=== PATIENT | female | born 1975 | race African-American/Black ===

== ENCOUNTER 2019-11-02 09:18 | Emergency (ER) | payer OTHER ==
[2014-08-06 16:00] VITALS: BP 135/65
[~2019-11-02 09:18] MED LIST: ALBU2.5V8 INH; AMIO200T4 PO; DABI150C PO; DISO150C3 PO; DIVA250T4 PO; ENOX40DI SQ; HYDR-3164 PO; LISI-334 PO; LORA1TAB PO; METO-247 PO; SIMV20TA18 PO; WARF4TAB68 PO
== END 2019-11-02 10:32 | disposition left against medical advice (07) ==
LOC: ER 09:18
DX: M25.561 Pain in right knee (principal); Z53.21 Procedure and treatment not carried out due to patient leaving prior to being seen by health care provider

== ENCOUNTER → 2021-02-25 | Outpatient (CLI) | payer BC, OTHER ==
[2014-08-06 16:00] VITALS: BP 135/65
[~2021-02-25] MED LIST changes: -AMIO200T4 PO; +AMIO200T53 PO; -LISI-334 PO; +LISI20TA18 PO
--- NOTE | 2021-02-25 14:58 | NUR ---
Patient tolerated MRI well. VS stable throughout. Pacemaker rep on site, RN present throughout imaging. 134/90, 84, 12, 95% on RA 137/91, 84, 14, 96% on RA 134/81, 84, 17, 94% on RA Patient's PPM returned to previous settings post MRI, tolerated well.
--- NOTE | 2021-02-25 17:09 | RAD ---
MR LUMBAR SPINE WO [id number] Date: 02/25/2021 1:39 PM Indication: CHRONIC LOW BACK PAIN, SPASMS WITH RIGHT LOWER EXT NUMBNESS Comparison: None. Technique: Multi-planar multi-weighted magnetic resonance imaging of the lumbar spine was performed w ithout intravenous contrast using the standard lumbar spine protocol. FINDINGS: Straightening of the lumbar lordosis. No acute fracture. Moderate multilevel degenerative disc desicc ation and disc height loss. Endplate edema at L2-3 on the right, likely degenerative. The conus terminates at a normal level. No abnormal signal is seen within the visualized distal spina l cord. No clumping of intrathecal nerve roots. No soft tissue abnormality in the visualized abdomen or pelvis. T12-L1: No disc bulge. No facet arthropathy. No significant spinal stenosis or neural foraminal narro wing. L1-L2: No disc bulge. No facet arthropathy. No significant spinal stenosis or neural foraminal narrow ing. L2-L3: Disc bulge with right far lateral protrusion which abuts the exiting right L2 nerve root. No f acet arthropathy. No significant spinal stenosis or neural foraminal narrowing. L3-L4: Disc bulge. No facet arthropathy. No significant spinal stenosis. Mild left neural foraminal n arrowing. L4-L5: Disc bulge. Mild facet arthropathy. No spinal stenosis. Mild lateral recess narrowing. Moderat e bilateral neural foraminal narrowing. L5-S1: Disc bulge. Mild facet arthropathy. No significant spinal stenosis or neural foraminal narrowi ng. IMPRESSION: Mild to moderate lumbar spondylosis, detailed level by level above. Electronically signed by: Alonso Concepcion MD (02/25/2021 5:06 PM) [id number]
== END ==
LOC: MRI 13:06
PROVIDERS: ATTEND Physical Medicine & Rehabilitation
DX: M47.27 Other spondylosis with radiculopathy, lumbosacral region (principal); M51.17 Intervertebral disc disorders with radiculopathy, lumbosacral region; M48.061 Spinal stenosis, lumbar region without neurogenic claudication; M40.46 Postural lordosis, lumbar region
CPT/HCPCS: 72148

== ENCOUNTER → 2021-03-16 | Outpatient (CLI) | payer BC ==
[2014-08-06 16:00] VITALS: BP 135/65
[~2021-03-16] MED LIST changes: +APIX5TAB PO; +CARV25TA2 PO; +HYDR-2765 PO; +IBUP-1060 PO; +SPIR25TA5 PO
--- NOTE | 2021-03-16 13:13 | PDOC1 ---
INITIAL PAIN CONSULT DATE OF SERVICE: DOS: DATE: 03/16/21 TIME: 13:07 CHIEF COMPLAINT: Chief Complaint: Low back and right lower extremity pain HISTORY OF PRESENT ILLNESS: 45-year-old female presents history of pain low back with right lower extremity for 6 months after she "stepped down wrong" onto her right leg jarring her back causing significant pain in the low back and right lower extremity mostly the p osterior gluteus posterior lateral thigh lateral anterior thigh anteromedial thigh medial lower leg and into the posterior calf as well worse with walking standing changing positions patient reports it wakes her for least 3 times a night from sleep it does affect her bowel bladder control without any incontinence just increased frequency patient reports it does affect her ability to walk she is using a cane which she has it with her today patient has had chiropractic treatment as well as doing exercise stretching strengthening on her own has had a sacroiliac joint injection from her primary physician as well as trigger point injections in the muscles in the back which were helpful but only very temporarily. Patient reports she keeps doing the stretching and is using heat on the back which seems to help as well. Patient reports the pain is primarily in the evening or later in the day but present all day changes during the day with activity worse with walking standing changing positions as a burning sensation in the low back and in the right leg is intermittently numb in the posterior and lateral aspect of the thigh as well as throbbing in the right ankle patient reports he is taking ibuprofen which does decrease the pain but only slightly as does hydrocodone which decreases by about 30 to 40%. Patient of MRI scan lumbar spine showing disc bulge at L4-5 with mild lateral recess narrowing moderate bilateral neuroforaminal narrowing as well. Patient rates her disability rating 0-10 10 me the worst is a 10 with family responsibilities recreation social activity occupation and self-care 9 with sexual behavior and 5 life support activities. 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 PREVIOUS SURGERIES: Past Surgical Hx: Aortic valve replacement 2014 and then replaced with pig valve 2017, Dayday filter placement CURRENT MEDICATIONS: Current Meds: Active Scripts Medications Dose Route/Sig Max Daily Dose Days Date Category Ibuprofen 800 Mg Tablet 800 Mg PO PRN Q6HRS PRN 03/16/21 Reported Spironolactone 25 Mg Tablet 25 Mg PO BID 03/16/21 Reported Carvedilol 25 Mg Tablet 25 Mg PO BIDWMEALS 03/16/21 Reported Eliquis (Apixaban) 5 Mg Tablet 5 Mg PO BID 03/16/21 Reported Hydrocodone-Apap 7.5-325 (Hydrocodone Bit/Acetaminophen) 1 Tab Tablet 1 Tab PO PRN Q6HRS PRN 03/16/21 Reported ALLERGIES; Allergies: Coded Allergies: No Known Drug Allergies (Unverified , 08/06/14) FAMILY HISTORY: Family Hx: No major medical conditions that she is aware of SOCIAL HISTORY: Social Hx: Patient is under alcohol does not smoke says any illegal illicit recreational drugs lives locally in [facility] REVIEW OF SYSTEMS: ROS: Positive for those items mentioned in history of present illness, all systems are reviewed, otherwise negative ,and are complete full and well-documented on patient's chart. PHYSICAL EXAM: VS: Blood pressures 127/71 pulse 88 respiration 16 temperature 98.8 with Fahrenheit height is 5 feet 10 inches weight is 214 pounds. PE: PHYSICAL EXAMINATION: GENERAL: The patient is awake, alert, oriented, appropriate, very pleasant demeanor HEENT: Shows normocephalic, atraumatic. Extraocular movements are intact and symmetrical. Oral cavity: Mucous membranes moist and pink. Dentition is intact. NECK: Shows anterior throat supple without palpable lymphadenopathy noted. Swallow reflex symmetrical. CHEST: Shows normal on inspection. Breath sounds are clear bilaterally, distant but no rales or rhonchi. HEART: Shows S1, S2 clear. No murmurs auscultated. ABDOMEN: Soft, nontender, nondistended, obese. No palpable organomegaly is noted. BACK: Shows spine grossly in the midline. Normal-appearing cervical lordotic curvature. There is slightly increased thoracic kyphosis, some minor flattening of the lumbar lordotic curvature. Lumbar paraspinous muscles show symmetrical on inspection, on palpation shows some moderate tenderness diffusely throughout the upper, middle and lower distribution of the paraspinous muscles bilaterally and also into the lower thoracic paraspinous musculature, firm and tender, but without specific trigger points, without radiation of pain. The patient has good rotational motion of the lumbar spine, both laterally as well as extension and flexion without significant difficulty. No tenderness over the spinous processes, sacrum or sacroiliac regions. EXTREMITIES: Lower extremities show deep tendon reflexes 2+ in the patellar and tendo calcaneus tendons. Motor exam is 4 on a scale of 5 with right dorsiflexion, extension, quadriceps and hamstring flexion and 5/5 on the left. Peripheral pulses are 1+ posterior tibial. No peripheral edema is noted bilaterally. Lower extremities are warm and dry to touch, equal in color and appearance. Straight leg raise noted to be Ector on the right about 4 degrees, left side is negative. Gaenslen's and Kris's maneuvers are negative bilaterally. The patient is able to stand, stand on her toes without significant difficulty walks with a slight favoring gait does appear to favor the right lower extremity slightly, and does have a cane with her today to ambulate. SKIN: Shows warm and dry, good turgor. No edema. No sores, rashes or bruising throughout. IMPRESSION: Impression: 45-year-old female with approximate 6-month history of pain low back right lower extremity in a radicular fashion following L4-5 dermatomal distribution. MRI scan lumbar spine as noted Hypertension Factor V deficiency Cardiomyopathy status post aortic valve replacement with anticoagulation therapy Plan: Options discussed with the patient including continued physical therapies conservative medical management and interventional techniques. Patient would like to pursue interventional techniques. We discussed a lumbar epidural steroid injection using descriptions as well as anatomical models described procedure. Patient will wait for preauthorization with insurance provider, once obtained we will plan on translaminar approach L4-5 level lumbar epidural steroid injection with fluoroscopic guidance. In the meantime, patient continue with stretching strengthening exercises as well as oral analgesics and anti- inflammatories as currently. LOC CORDERO MD Mar 16, 2021 13:13
== END | disposition home or self-care (01) ==
LOC: PNCL 08:33
PROVIDERS: ATTEND Anesthesiology
DX: M79.604 Pain in right leg (principal); M54.50 Low back pain, unspecified; I10 Essential (primary) hypertension; D68.2 Hereditary deficiency of other clotting factors; E78.00 Pure hypercholesterolemia, unspecified; I48.91 Unspecified atrial fibrillation; F41.9 Anxiety disorder, unspecified; F17.210 Nicotine dependence, cigarettes, uncomplicated; Z98.51 Tubal ligation status; Z98.890 Other specified postprocedural states; Z79.899 Other long term (current) drug therapy
CPT/HCPCS: 99214; G0463

== ENCOUNTER → 2021-03-23 | Outpatient (CLI) | payer BC ==
[2014-08-06 16:00] VITALS: BP 135/65
[~2021-03-23] MED LIST changes: +IOHEXOL 180 MG/ML 10 ML VIAL. ONE; +methylPREDNISolone ACETATE 40 MG/ML VIAL. ONE; +methylPREDNISolone ACETATE 80 MG/ML VIAL. ONE
--- NOTE | 2021-03-23 15:50 | PDOC ---
Progress Note - Pain Clinic Date of Service: DOS: DATE: 03/23/21 TIME: 15:46 Diagnosis: Dx: Lumbar radiculopathy with lumbar degenerative disc disease History or Present Illness: HPI: 45-year-old female returns complaining of pain low back and right lower extremity patient was in the posterior gluteus posterior lateral thigh lateral anterior thigh anteromedial thigh medial lower leg across the low back region which is a 10 on scale 10 is worst least and average is a 10 today patient describes the pain as tingling burning cramping stabbing in the back radiating shooting can be constant and unbearable at times worse with walking standing changing positions better with sitting or laying down. Patient reports no bowel or bladder incontinence no loss of motor function but significant fatigability of the right lower extremity with ambulation and standing. Patient reports it wakes her from sleep occasionally but once about every 5-6 hours she can use repositioning it back to sleep. We did review patient's MRI scan with her today once again showing disc bulging with far right lateral protrusion abutting the right L2 nerve root as well as disc bulge at L3-4 and L4-5 and L5-S1. Physical Exam: VS: Blood pressure is 138/91 pulse 88 respirations 18 temperature 99 point Ector external height 5 feet 10 inches weight is 211 pounds PE: PHYSICAL EXAMINATION: GENERAL: The patient is awake, alert, oriented, appropriate, very pleasant in demeanor HEENT: Shows normocephalic, atraumatic. Extraocular movements are intact and symmetrical. Oral cavity: Mucous membranes moist and pink. Dentition is intact. NECK: Shows anterior throat supple without palpable lymphadenopathy noted. Swallow reflex symmetrical. CHEST: Shows normal on inspection. Breath sounds are clear bilaterally, no rales or rhonchi. HEART: Shows S1, S2 clear. No murmurs auscultated. ABDOMEN: Soft, nontender, nondistended. No palpable organomegaly is noted. BACK: Shows spine grossly in the midline. Normal-appearing cervical lordotic curvature. There is increased thoracic kyphosis, some flattening of the lumbar lordotic curvature. Lumbar paraspinous muscles show symmetrical on inspection, on palpation shows some moderate tenderness diffusely throughout the upper, middle and lower distribution of the paraspinous muscles without specific trigger points, without radiation of pain. The patient has good rotational motion of the lumbar spine, both laterally as well as extension and flexion without significant difficulty. EXTREMITIES: Lower extremities show deep tendon reflexes 2+ in the patellar and tendo calcaneus tendons. Motor exam is 4 on a scale of 5 with right dorsiflexion, extension, quadriceps and hamstring flexion and 5/5 on the left. Peripheral pulses are 1+ posterior tibial. No peripheral edema is noted bilaterally. Lower extremities are warm and dry to touch, equal in color and appearance. SKIN: Shows warm and dry, good turgor. No edema. No sores, rashes or bruising throughout. Procedure: Procedure: Options were discussed the patient. Patient chart was reviewed as her current medication regimen updated current review of systems updated today as well. We will proceed with a lumbar epidural steroid injection today with fluoroscopic guidance. Risks were discussed including but not limited to: Bleeding, infection, possibility of epidural hematoma and subsequent neurological compromise, dural puncture, headaches, spinal cord and/or nerve damage, side effects of steroid medication, and poor results regarding pain control. Patient understands and wished to proceed. Patient will return to clinic in approx imately 2 weeks, was counseled as to return appointment, activity level, and side effect to be aware of. Medication Injected: Med Injected: Procedure is lumbar epidural steroid injection under local anesthetic using sterile prep and drape at the L4-5 level using C-arm fluoroscopic guidance in both AP and lateral views medications injected is 120 mg Depo-Medrol +10mL preservative-free normal saline and 2 mL contrast- condition at discharge is stable patient tolerated procedure well had no complications. Condition at Discharge: Condition at Discharge: Condition at discharge stable, paced tolerated the procedure well and had no complications. LOC CORDERO MD Mar 23, 2021 15:50
--- NOTE | 2021-03-23 15:51 | PDOC4 ---
Procedure Note: ICD 10 Code: ICD 10 Code: M54.16 M51.36 Procedure Note: Patient was consented for lumbar epidural steroid injection with fluoroscopic guidance. Risks were discussed including but not limited to: Bleeding, infection, possibility of epidural hematoma and subsequent neurological compromise, dural puncture, headaches, spinal cord and/or nerve damage, side effects of steroid medication, and poor results regarding pain control. Patient understands and wished to proceed. Procedure is lumbar epidural steroid injection under local anesthetic using sterile prep and drape at the L4-5 level using C-arm fluoroscopic guidance in both AP and lateral views medications injected is 120 mg Depo-Medrol +10mL preservative-free normal saline and 2 mL contrast- condition at discharge is stable patient tolerated procedure well had no complications. LOC CORDERO MD Mar 23, 2021 15:51
== END | disposition home or self-care (01) ==
LOC: PNCL 15:04
PROVIDERS: ATTEND Anesthesiology
DX: M51.16 Intervertebral disc disorders with radiculopathy, lumbar region (principal); I10 Essential (primary) hypertension; E78.00 Pure hypercholesterolemia, unspecified; I48.91 Unspecified atrial fibrillation; F17.210 Nicotine dependence, cigarettes, uncomplicated; Z98.51 Tubal ligation status; Z98.890 Other specified postprocedural states; Z79.899 Other long term (current) drug therapy
CPT/HCPCS: 62323; J1030; J1040; Q9965

== ENCOUNTER → 2021-04-06 | Outpatient (CLI) | payer BC ==
[2014-08-06 16:00] VITALS: BP 135/65
[~2021-04-06] MED LIST changes: -IOHEXOL 180 MG/ML 10 ML VIAL. ONE; -methylPREDNISolone ACETATE 40 MG/ML VIAL. ONE; -methylPREDNISolone ACETATE 80 MG/ML VIAL. ONE
--- NOTE | 2021-04-06 14:27 | PDOC ---
Progress Note - Pain Clinic Date of Service: DOS: DATE: 04/06/21 TIME: 14:23 Diagnosis: Dx: Lumbar radiculopathy with lumbar degenerative disc disease History or Present Illness: HPI: 45-year-old female returns for follow-up status post lumbar epidural steroid injection x1. Patient reports 90% improvement for the first 2 and half weeks pain returning now but still significantly improved in the low back and right lower extremity posterior gluteus posterior lateral thigh lateral anterior thigh anteromedial thigh medial lower leg patient reports it is much better than it was getting to return after the significantly with pain radiating into the lower extremity as noted. Patient describes it as sharp and shooting also dull in the back tight in the back with some cramping in the calf as well with walking and standing patient reports he is doing much better with distance walking doing household activities work activities try with greater ease and comfort sleeping better generally not awaken her from sleep at this time patient rates her pain a 9 on scale 10 is worse over the past week 7 on average to its least is a 7 today. Patient continues to do stretching and strength exercises on her own at home as well as oral analgesics ibuprofen, and hydrocodone. Patient with no bowel or bladder incontinence. Physical Exam: VS: Blood pressure is 140/95 pulse 74 respirations 18 temperature is 98.6 F height is 5 feet 10 inches weight is 213 pounds PE: PHYSICAL EXAMINATION: GENERAL: The patient is awake, alert, oriented, appropriate, very pleasant in demeanor HEENT: Shows normocephalic, atraumatic. Extraocular movements are intact and symmetrical. Oral cavity: Mucous membranes moist and pink. Dentition is intact. NECK: Shows anterior throat supple without palpable lymphadenopathy noted. Swallow reflex symmetrical. CHEST: Shows normal on inspection. Breath sounds are clear bilaterally. HEART: Shows S1, S2 clear. No murmurs auscultated. ABDOMEN: Soft, nontender, nondistended. No palpable organomegaly is noted. BACK: Shows spine grossly in the midline. Normal-appearing cervical lordotic curvature. There is slightly increased thoracic kyphosis, some minor flattening of the lumbar lordotic curvature. Lumbar paraspinous muscles show symmetrical on inspection, on palpation shows some moderate tenderness diffusely throughout the upper, middle and lower distribution of the paraspinous muscles without specific trigger points, without radiation of pain. The patient has good rotational motion of the lumbar spine, both laterally as well as extension and flexion without significant difficulty. EXTREMITIES: Lower extremities show deep tendon reflexes 2+ in the patellar and tendo calcaneus tendons. Motor exam is 4 on a scale of 5 with right d orsiflexion, extension, quadriceps and hamstring flexion and 5/5 on the left. Peripheral pulses are 1+ posterior tibial. No peripheral edema is noted bilaterally. Lower extremities are warm and dry to touch, equal in color and appearance. SKIN: Shows warm and dry, good turgor. No edema. No sores, rashes or bruising throughout. Procedure: Procedure: Options discussed with the patient. Patient chart reviews her current medication regimen updated current review of systems updated today as well. We will preauthorize patient for a second lumbar epidural steroid She is doing much better after the first injection but with pain returning in a radicular fashion following L4-5 dermatomal distribution in the right lower extremity. Patient continue with stretching strength exercises as well as oral analgesics as currently and wants obtained, will plan on translaminar L4-5 level lumbar epidural steroid injection with fluoroscopic guidance. Medication Injected: Med Injected: None Condition at Discharge: Condition at Discharge: Condition at discharge is stable LOC CORDERO MD Apr 06, 2021 14:27
== END | disposition home or self-care (01) ==
LOC: PNCL 13:08
PROVIDERS: ATTEND Anesthesiology
DX: M51.16 Intervertebral disc disorders with radiculopathy, lumbar region (principal); I10 Essential (primary) hypertension; I48.91 Unspecified atrial fibrillation; E78.00 Pure hypercholesterolemia, unspecified; F41.9 Anxiety disorder, unspecified; F17.210 Nicotine dependence, cigarettes, uncomplicated; Z98.51 Tubal ligation status; Z98.890 Other specified postprocedural states; Z79.899 Other long term (current) drug therapy
CPT/HCPCS: 99212; G0463